=== PATIENT | male | born 1960 | race Caucasian/White ===

== ENCOUNTER 2020-06-15 10:24 | Inpatient (IN) | payer BC ==
[~2020-06-15] VITALS: Ht 177.8 cm; Wt 84.3 kg
[2020-06-15 11:18] LABS: Basophils # (auto) 0 10 ^3/uL (0-0.2); Basophils % (auto) 0.2 % (0.0-2.0); Eosinophils # (auto) 0 10 ^3/uL (0-0.8); Eosinophils % (auto) 0.5 % (0.0-7.0); Hematocrit 49.8 % (41.0-53.0); Hemoglobin 16.5 g/dL (13.5-17.5); Lymphocytes # (auto) 1.7 10 ^3/uL (0.4-5.4); Lymphocytes % (auto) 22.2 % (10.0-50.0); Mean Corpuscular Hgb Conc. 33.2 g/dL (32.0-36.0); Mean Corpuscular Volume 87.4 fL (80.0-100.0); Monocytes # (auto) 0.5 10 ^3/uL (0-1.3); Monocytes % (auto) 7.3 % (0.0-12.0); Neutrophils # (auto) 5.2 10 ^3/uL (1.6-8.6); Neutrophils % (auto) 69.8 % (37.0-80.0); Nucleated Red Blood Cells % 0.1 %; Platelet Count (auto) 195 10^3/uL (140-450); Red Blood Cells 5.69 10^6/uL (4.5-5.90); Red Cell Distribution Width 13.4 % (11.8-14.3); White Blood Cell 7.5 10^3/uL (4.4-10.8)
[2020-06-15 11:39] LABS: Albumin 3.8 g/dL (3.4-5.0); Calcium 8.8 mg/dL (8.5-10.1); Potassium 4.1 mmol/L (3.5-5.1)
[2020-06-15 11:42] LABS: BUN/Creatinine Ratio 16.5; Bilirubin, Total 0.7 mg/dL (0.2-1.0)
[2020-06-15 11:51] LABS: INR 1.08 (0.9-1.15); Partial Thromboplastin Time 27.6 sec (23.0-31.2)
[2020-06-15 12:11] LABS: Magnesium 2.4 mg/dL (1.6-2.6)
[2020-06-15] MEDS ORDERED: ONDANSETRON HCL 4 MG/2 ML VIAL IV ONE (12:45)
[2020-06-15] MEDS ORDERED: MORPHINE SULF INJ 2 MG/ML SYRINGE 1ML IV PRN (13:45)
[2020-06-15] MEDS ORDERED: NITROGLYCERIN 0.4 MG SL TAB SL PRN ×2 (13:45→14:30)
[2020-06-15] MEDS ORDERED: FAMOTIDINE (10MG/ML) 2ML VL IV ONE (13:45)
[2020-06-15] MEDS ORDERED: SODIUM CHLORIDE 0.9% 1,000 ML IV ONE (13:45)
[2020-06-15] MEDS ORDERED: ATORVASTATIN 20 MG TAB PO ONE (13:45)
[2020-06-15] MEDS ORDERED: ASPirin 81 mg TAB PO ONE (13:45)
[2020-06-15] MEDS ORDERED: METOPROLOL SUCCINATE XL 50 MG TAB PO ONE (13:45)
[2020-06-15] MEDS ORDERED: CHOL20007 PO (13:46)
[2020-06-15] MEDS ORDERED: ATOR10TA52 PO (13:46)
[2020-06-15] MEDS ORDERED: MULT-928 PO (13:46)
[2020-06-15] MEDS ORDERED: ONDANSETRON HCL 4 MG/2 ML VIAL IV PRN (14:30)
[2020-06-15] MEDS ORDERED: ACETAMINOPHEN 325 MG TAB PO PRN (14:30)
[2020-06-15] MEDS ORDERED: LORazepam 0.5 MG TAB PO PRN (14:30)
[2020-06-15] MEDS ORDERED: ACETAMINOPHEN 500 MG TAB PO PRN (14:30)
[2020-06-15] MEDS ORDERED: ALUM & MAG HYDROX-SIMETH LIQ(MAALOX) 30 ML PO PRN (14:30)
[2020-06-15] MEDS ORDERED: MORPHINE SULFATE 4 MG/ML SYR/VIAL IV PRN (14:30)
[2020-06-15] MEDS: SODIUM CHLORIDE 0.9% 1,000 ML IV SCH (14:45)
[2020-06-15] MEDS ORDERED: hydrALAZINE HCL 20 MG/ML VL IV PRN (14:45)
[2020-06-15 15:20] LABS: Urine Bacteria NONE SEEN /hpf (None Seen); Urine Blood Negative /uL (Negative); Urine Specific Gravity 1.007 (1.001-1.035); Urine WBC <1 /hpf (0 - 3)
[2020-06-15] MEDS ORDERED: hydrALAZINE HCL 25 MG TAB PO PRN (15:30)
--- NOTE | 2020-06-15 15:55 | NUR ---
Telemetry admit from ER EVA MCCLELLAND admitted to Telemetry unit after SBAR received. Patient oriented to [facility] RN primary RN, unit, room, bed, and unit policies regarding patient. Patient now on continuous telemetry monitoring, tele box # 50 and telemetry reading on arrival to unit is sinus rhythm 74. Patient is on room air, respirations even and unlabored. Patient denies pain or shortness of breath at this time. Reviewed plan of care with patient, patient verbalized understanding. Bed in low and locked position, call light within reach. Will continue to monitor Q1 hour and PRN.
[2020-06-15 17:00] VITALS: BP 147/96
--- NOTE | 2020-06-15 19:00 | NUR ---
Opening Shift Note Assumed care of patient, awake and alert. No S/S of distress/SOB or pain. Instructed on POC and to call for assist PRN, will continue to monitor for changes Q1hr and PRN.
--- NOTE | 2020-06-15 19:15 | NUR ---
Closing Note Report given to manager night RN. No signs or symptoms of distress noted at this time.
[2020-06-15] MEDS ORDERED: IBUPROFEN 600 MG TAB PO ONE (21:15)
--- NOTE | 2020-06-15 21:20 | NUR ---
DR AMANDA PATEL IN TO SEE PATIENT FOR CONSULT.
[2020-06-15] MEDS: METOPROLOL TARTRATE 25 MG TAB PO SCH (21:50)
[2020-06-15] MEDS ORDERED: ATORVASTATIN 20 MG TAB PO SCH (22:00)
[2020-06-15 22:43] VITALS: BP 130/76
[2020-06-16] VITALS (8 sets, daily range): BP systolic 124–141; BP diastolic 74–86
[2020-06-16] MEDS: SODIUM CHLORIDE 0.9% 1,000 ML IV SCH (04:12)
--- NOTE | 2020-06-16 08:00 | NUR ---
OPENING SHIFT NOTE: PATIENT RESTING IN BED TALKING ON CELL PHONE. PATIENT A/OX4, RESPIRATIONS EVEN AND UNLABORED. UPDATED ON PLAN OF CARE. CALL LIGHT WITHIN REACH, WILL CONTINUE TO MONITOR.
[2020-06-16 09:02] LABS: Alcohol, Urine < 3.0 mg/dL (0-10); Amphetamine Screen, Urine NEGATIVE (NEGATIVE); Barbiturate Scree,Urine NEGATIVE (NEGATIVE); Benzodiazephine Screen, Urine NEGATIVE (NEGATIVE); Cannabinoid Screen, Urine NEGATIVE (NEGATIVE); Cocaine Screen, Urine NEGATIVE (NEGATIVE); Phencyclidine Screen, Urine NEGATIVE (NEGATIVE)
[2020-06-16] MEDS ORDERED: ENOXAPARIN SOD 60 MG/0.6 ML SYRINGE SC SCH (10:00)
[2020-06-16] MEDS ORDERED: ASPirin 81 mg TAB PO SCH (10:00)
[2020-06-16] MEDS ORDERED: LOSARTAN POTASSIUM 25 MG TAB PO SCH (10:00)
[2020-06-16] MEDS ORDERED: CHOLECALCIFEROL (VITD3) 2,000 UNIT CAP PO SCH (10:00)
[2020-06-16] MEDS ORDERED: DOCUSATE SOD 100 MG CAP PO SCH (10:00)
[2020-06-16] MEDS: METOPROLOL TARTRATE 25 MG TAB PO SCH (10:26)
--- NOTE | 2020-06-16 11:40 | NUR ---
PATIENT TAKEN DOWN TO MRI.
[2020-06-16 12:01] LABS: Opiate Scree,Urine NEGATIVE (NEGATIVE)
--- NOTE | 2020-06-16 15:45 | NUR ---
MD GREGG ROUNDING
--- NOTE | 2020-06-16 16:10 | NUR ---
OKAY TO DC AFTER NEUROLOGY CLEARS PATIENT, PER DR. MARYSOL PATEL WILL BE IN LATER TO SEE PATIENT.
--- NOTE | 2020-06-16 16:12 | NUR ---
PATIENT CLEARED BY CARDIOLOGY FOR DC.
[2020-06-16] MEDS ORDERED: MET25T PO (16:14)
[2020-06-16] MEDS ORDERED: ATOR20TA50 PO (16:14)
[2020-06-16] MEDS ORDERED: ASPI81CH43 PO (16:14)
[2020-06-16] MEDS ORDERED: MECL12.514 PO (16:14)
[2020-06-16 18:05] LABS: Cholesterol 164 mg/dL (< 200); HDL Cholesterol 45 mg/dL (40-59); LDL Cholesterol 105 mg/dL (< 100); Triglycerides 148 mg/dL (< 150)
--- NOTE | 2020-06-16 18:29 | NUR ---
DC PENDING- INFORMED PATIENT IS DISCHARGED ONCE CLEARED BY NEUROLOGIST DR. PATEL. PATIENT AGREES WITH PLAN OF CARE, WILL MAKE SURE NOC RN IS AWARE.
--- NOTE | 2020-06-16 19:25 | NUR ---
Opening note Assumed care of patient, patient is alert and orientated x4. no sob or distress noted. POC reviewed. Patient verbalized understanding. Call light within reach will continue to monitor.
--- NOTE | 2020-06-16 19:41 | NUR ---
Dr Pena at bedside Dr Pena at bedside. States he will look at the MRI himself and decide on letting him discharge.
--- NOTE | 2020-06-16 21:10 | NUR ---
Discharge note Patient discharged after all belongings and paperwork reviewed. new medications given and explained dr Pena wanted aspirin dc. patient aware. No sob or distress noted. HEATING AND [employer]ENDING SUPERVISOR took patient down to main lobby. his is waiting to pick him up.
[2020-06-17] MEDS ORDERED: ENOXAPARIN SOD 40 MG/0.4 ML SYRINGE SC SCH (10:00)
== END 2020-06-16 21:10 | disposition home or self-care (01) | DRG 149 ==
LOC: ER 10:24 → TELE 10:25 → TELE-WESTW 16:06
PROVIDERS: ADMIT Hospitalist; ATTEND Internal Medicine
DX: H81.10 Benign paroxysmal vertigo, unspecified ear (principal); G93.41 Metabolic encephalopathy; E66.9 Obesity, unspecified; G47.10 Hypersomnia, unspecified; I11.9 Hypertensive heart disease without heart failure; Z79.82 Long term (current) use of aspirin; Z80.1 Family history of malignant neoplasm of trachea, bronchus and lung; Z80.7 Family history of other malignant neoplasms of lymphoid, hematopoietic and related tissues; Z82.0 Family history of epilepsy and other diseases of the nervous system; Z85.828 Personal history of other malignant neoplasm of skin; E78.5 Hyperlipidemia, unspecified; Z88.0 Allergy status to penicillin; Z88.1 Allergy status to other antibiotic agents; Z68.26 Body mass index [BMI] 26.0-26.9, adult
CPT/HCPCS: 36415; 70450; 70551; 71045; 80053; 80061; 80307; 81001; 82962; 83036; 83735; 84484; 85025; 85610; 85730; 93005; 93306; 93886; 96361; 96374; 96375; G0378; J2405; J3490